=== PATIENT | female | born 2000 | race American Indian/Alaskan Native ===

== ENCOUNTER 2018-08-29 23:32 | Emergency (ER) | payer OTHER ==
[2018-08-29 23:51] VITALS: BP 118/64
--- NOTE | 2018-08-30 01:04 | XRay Report ---
PROCEDURE: XR CHEST ROUTINE 2V TECHNIQUE: PA and lateral chest radiographs were obtained. HISTORY: chestpain COMPARISONS: None. FINDINGS: Heart: Normal. Mediastinum/Vessels: Normal. Lungs/Pleural space: Normal. Bony thorax: No acute osseous abnormality. IMPRESSION: Normal examination. This document is electronically signed by Beckie Rosario DO., August 30 2018 01:02:03 AM ET
[2018-08-30] MEDS ORDERED: AUGMENTIN 875 MG PO ONE (03:06)
[2018-08-30] MEDS ORDERED: BENADRYL PO ONE (03:06)
[2018-08-30] MEDS ORDERED: IBUPROFEN PO ONE (03:06)
--- NOTE | 2018-08-30 03:06 | Emergency Department Report ---
ED General Adult HPI - General Chief complaint: Chest Pain Stated complaint: CP/THROAT PAIN/HEADACHE Time Seen by Provider: 08/30/18 03:04 Source: patient Mode of arrival: Ambulatory Limitations: No Limitations - History of Present Illness Initial comments: [id number] -[place]ip[place] female with a history of sinusitis who presents for URI symptoms today including postnasal drip sinus pain and pressure sore throat and ear pain and cough cough now produces chest pain with cough only right lateral chest wall patient denies shortness of breath is no wheezing there is no stridor symptoms are exacerbated by environmental exposure, vsymptoms are relieved by rest. Onset/Timin -: days(s) Severity scale (0 -10): 7 Quality: sharp Consistency: constant Improves with: rest Worsens with: movement, other (palpation) Associated Symptoms: chest pain, cough Treatments Prior to Arrival: none - Related Data Previous Rx's Medication Instructions Recorded Last Taken Type Amoxicillin/Potassium Clav 1 each PO BID 10 Days #20 tablet 08/30/18 Unknown Rx [Augmentin 875-125 Tablet] Fluticasone [Flonase] 1 spray NS QDAY #1 bottle 08/30/18 Unknown Rx Ibuprofen 800 mg PO TID PRN #30 tablet 08/30/18 Unknown Rx diphenhydrAMINE [Benadryl CAP] 25 mg PO Q6HR PRN #30 capsule 08/30/18 Unknown Rx predniSONE [Deltasone] 40 mg PO QDAY 5 Days #10 tab 08/30/18 Unknown Rx Allergies Allergy/AdvReac Type Severity Reaction Status Date / Time No Known Allergies Allergy Unverified 08/29/18 23:35 ED Review of Systems ROS: Stated complaint: CP/THROAT PAIN/HEADACHE Other details as noted in HPI Constitutional: no symptoms reported, chills, malaise Eyes: denies: eye pain, eye discharge, vision change ENT: congestion. denies: ear pain, throat pain Respiratory: cough Cardiovascular: denies: chest pain, palpitations Endocrine: no symptoms reported Gastrointestinal: denies: abdominal pain, nausea, diarrhea Genitourinary: denies: urgency, dysuria, discharge Musculoskeletal: denies: back pain, joint swelling, arthralgia Skin: denies: rash, lesions Neurological: denies: headache, weakness, paresthesias Psychiatric: denies: anxiety, depression Hematological/Lymphatic: denies: easy bleeding, easy bruising ED Past Medical Hx - Past Medical History Hx Asthma: Yes - Surgical History Past Surgical History?: No - Social History Smoking Status: Never Smoker Substance Use Type: Marijuana - Medications Home Medications: Home Medications Medication Instructions Recorded Confirmed Last Taken Type Amoxicillin/Potassium Clav 1 each PO BID 10 Days #20 tablet 08/30/18 Unknown Rx [Augmentin 875-125 Tablet] Fluticasone [Flonase] 1 spray NS QDAY #1 bottle 08/30/18 Unknown Rx Ibuprofen 800 mg PO TID PRN #30 tablet 08/30/18 Unknown Rx diphenhydrAMINE [Benadryl CAP] 25 mg PO Q6HR PRN #30 capsule 08/30/18 Unknown Rx predniSONE [Deltasone] 40 mg PO QDAY 5 Days #10 tab 08/30/18 Unknown Rx ED Physical Exam - General Limitations: No Limitations General appearance: alert, in no apparent distress - Head Head exam: Present: atraumatic, normocephalic - Eye Eye exam: Present: normal appearance, PERRL, EOMI Pupils: Present: normal accommodation - ENT ENT exam: Present: normal exam, mucous membranes moist, TM's normal bilaterally, other (bilat sinus pain to palpation no erythema no swelling turbinate eryethema boggy clear post nasal drip ) - Expanded ENT Exam Expanded Ear exam: Present: normal external inspection Mouth exam: Absent: trismus Throat exam: Positive: normal inspection, tonsillar erythema, tonsillomegaly. Negative: tonsillar exudate, R peritonsillar mass, L peritonsillar mass, other - Neck Neck exam: Present: normal inspection, full ROM, lymphadenopathy. Absent: tenderness, meningismus, thyromegaly - Expanded Neck Exam Expanded Neck exam: Absent: tenderness, midline deformity, anterior neck swelling, thyroid mass, carotid bruit, tracheal deviation - Respiratory Respiratory exam: Present: normal lung sounds bilaterally, chest wall tenderness (right lateral chest wall ). Absent: respiratory distress, wheezes, stridor - Cardiovascular Cardiovascular Exam: Present: regular rate, normal rhythm, normal heart sounds. Absent: systolic murmur, diastolic murmur, rubs, gallop - GI/Abdominal GI/Abdominal exam: Present: soft, normal bowel sounds. Absent: tenderness, guarding, rebound, rigid, bruit, hernia (5 mg) - Rectal Rectal exam: Present: deferred - Extremities Exam Extremities exam: Present: normal inspection, full ROM, normal capillary refill. Absent: tenderness, pedal edema, joint swelling, calf tenderness - Back Exam Back exam: Present: normal inspection, full ROM. Absent: tenderness, CVA tenderness (R), CVA tenderness (L), muscle spasm, paraspinal tenderness, rash noted - Neurological Exam Neurological exam: Present: alert, oriented X3, CN II-XII intact, normal gait, reflexes normal - Psychiatric Psychiatric exam: Present: normal affect, normal mood - Skin Skin exam: Present: warm (30 says he's , history of scan of the atenolol), dry, intact, normal color. Absent: rash ED Course Vital Signs 08/29/18 23:41 Temperature 98.1 F Pulse Rate 71 Respiratory 18 Rate Blood Pressure 118/64 O2 Sat by Pulse 100 Oximetry ED Medical Decision Making - EKG Data EKG shows normal: sinus rhythm Rate: normal - EKG Data When compared to previous EKG there are: previous EKG unavailable Interpretation: normal EKG (ekg interp by ed attending NSR no st elevation no ectopy ) - Radiology Data Radiology results: report reviewed, image reviewed cc: ED DOC, Fluoro Time In Minutes: PROCEDURE: XR CHEST ROUTINE 2V TECHNIQUE: PA and lateral chest radiographs were obtained. HISTORY: chestpain COMPARISONS: None. FINDINGS: Heart: Normal. Mediastinum/Vessels: Normal. Lungs/Pleural space: Normal. Bony thorax: No acute osseous abnormality. IMPRESSION: Normal examination. This document is electronically signed by Ryan Rosario DO., August 30 2018 01:02:03 AM ET Transcribed By: [facility] Dictated By: RYAN ROSARIO MD Electronically Authenticated By: RYAN ROSARIO MD Signed Date/Time: 08/30/184 DD/ TD/TT: 08/30/1856 - Medical Decision Making this is sinusitis, cxr: normal no opactities no infiltrates, EKG: NSR no st elevation no ectopy, plan tx for sinusitis with augment, ibuprofen, prednisone,flonase, follow up with pcp in 2-3 days return to ed if symptoms worsen. pt verbalized agreement and understanding of same. Critical care attestation.: If time is entered above; I have spent that time in minutes in the direct care of this critically ill patient, excluding procedure time. ED Disposition Clinical Impression: Sinusitis Qualifiers: Sinusitis location: maxillary Chronicity: acute Recurrence: non-recurrent Qualified Code(s): J01.00 - Acute maxillary sinusitis, unspecified Disposition: - TO HOME OR SELFCARE Is pt being admited?: No Does the pt Need Aspirin: No Condition: Stable Instructions: Sinusitis (ED) Prescriptions: Amoxicillin/Potassium Clav [Augmentin 875-125 Tablet] 1 each PO BID 10 Days #20 tablet diphenhydrAMINE [Benadryl CAP] 25 mg PO Q6HR PRN #30 capsule PRN Reason: sinus congestion predniSONE [Deltasone] 40 mg PO QDAY 5 Days #10 tab Fluticasone [Flonase] 1 spray NS QDAY #1 bottle Ibuprofen 800 mg PO TID PRN #30 tablet PRN Reason: fever pain Referrals: MIKI ESPINOSA MD [Primary Care Provider] - 3-5 Days
== END 2018-08-30 03:54 | disposition home or self-care (01) ==
LOC: ED 23:32
DX: J01.00 Acute maxillary sinusitis, unspecified (principal); J45.909 Unspecified asthma, uncomplicated
CPT/HCPCS: 71046; 93005; 93010; 99283

== ENCOUNTER 2018-09-20 11:43 | Emergency (ER) | payer OTHER ==
[2018-09-20 12:01] VITALS: BP 124/78
--- NOTE | 2018-09-20 13:54 | Emergency Department Report ---
ED General Adult HPI - General Chief complaint: Upper Respiratory Infection Stated complaint: CHEST PAIN/COUGHING/VOMITING Time Seen by Provider: 09/20/18 13:52 Source: patient Mode of arrival: Ambulatory Limitations: No Limitations - History of Present Illness Initial comments: Patient is a 18-year-old female past medical history of marijuana abuse who presents with cough and chest wall pain. Patient states that she has been smoking every day for most of her life. She also states around 2 weeks ago she's been having awful productive mucus. The mucus is thick and green phlegm and she states she only has chest wall pain when she coughs. Patient states that she was given antibiotics and steroids however she is finished her medications and her symptoms remain. She says it's a severe cough. She states that she has stopped smoking. Severity scale (0 -10): 0 - Related Data Previous Rx's Medication Instructions Recorded Last Taken Type Amoxicillin/Potassium Clav 1 each PO BID 10 Days #20 tablet 08/30/18 Unknown Rx [Augmentin 875-125 Tablet] Fluticasone [Flonase] 1 spray NS QDAY #1 bottle 08/30/18 Unknown Rx Ibuprofen 800 mg PO TID PRN #30 tablet 08/30/18 Unknown Rx diphenhydrAMINE [Benadryl CAP] 25 mg PO Q6HR PRN #30 capsule 08/30/18 Unknown Rx predniSONE [Deltasone] 40 mg PO QDAY 5 Days #10 tab 08/30/18 Unknown Rx Albuterol Sulfate [Albuterol 8.5 gm IH Q6H #1 hfa.aer.ad 09/20/18 Unknown Rx Sulfate Hfa] Benzonatate [Tessalon Perles] 100 mg PO Q8HR #30 capsule 09/20/18 Unknown Rx Allergies Allergy/AdvReac Type Severity Reaction Status Date / Time No Known Allergies Allergy Unverified 08/29/18 23:35 ED Review of Systems ROS: Stated complaint: CHEST PAIN/COUGHING/VOMITING Other details as noted in HPI Constitutional: denies: chills, fever Eyes: denies: eye pain, eye discharge, vision change ENT: denies: ear pain, throat pain Respiratory: cough. denies: shortness of breath, wheezing Cardiovascular: denies: chest pain, palpitations Endocrine: no symptoms reported Gastrointestinal: denies: abdominal pain, nausea, diarrhea Genitourinary: denies: urgency, dysuria, discharge Musculoskeletal: denies: back pain, joint swelling, arthralgia Skin: denies: rash, lesions Neurological: denies: headache, weakness, paresthesias Psychiatric: denies: anxiety, depression Hematological/Lymphatic: denies: easy bleeding, easy bruising ED Past Medical Hx - Past Medical History Hx Asthma: Yes Additional medical history: Sinus inf. - Surgical History Past Surgical History?: No - Social History Smoking Status: Current Every Day Smoker Substance Use Type: None - Medications Home Medications: Home Medications Medication Instructions Recorded Confirmed Last Taken Type Amoxicillin/Potassium Clav 1 each PO BID 10 Days #20 tablet 08/30/18 Unknown Rx [Augmentin 875-125 Tablet] Fluticasone [Flonase] 1 spray NS QDAY #1 bottle 08/30/18 Unknown Rx Ibuprofen 800 mg PO TID PRN #30 tablet 08/30/18 Unknown Rx diphenhydrAMINE [Benadryl CAP] 25 mg PO Q6HR PRN #30 capsule 08/30/18 Unknown Rx predniSONE [Deltasone] 40 mg PO QDAY 5 Days #10 tab 08/30/18 Unknown Rx Albuterol Sulfate [Albuterol 8.5 gm IH Q6H #1 hfa.aer.ad 09/20/18 Unknown Rx Sulfate Hfa] Benzonatate [Tessalon Perles] 100 mg PO Q8HR #30 capsule 09/20/18 Unknown Rx ED Physical Exam - General Limitations: No Limitations General appearance: alert, in no apparent distress - Head Head exam: Present: atraumatic, normocephalic - Eye Eye exam: Present: normal appearance - ENT ENT exam: Present: mucous membranes moist - Neck Neck exam: Present: normal inspection - Respiratory Respiratory exam: Present: normal lung sounds bilaterally. Absent: respiratory distress - Cardiovascular Cardiovascular Exam: Present: regular rate, normal rhythm. Absent: systolic murmur, diastolic murmur, rubs, gallop - GI/Abdominal GI/Abdominal exam: Present: soft, normal bowel sounds - Extremities Exam Extremities exam: Present: normal inspection - Back Exam Back exam: Present: normal inspection - Neurological Exam Neurological exam: Present: alert, oriented X3 - Psychiatric Psychiatric exam: Present: normal affect, normal mood - Skin Skin exam: Present: warm, dry, intact, normal color. Absent: rash ED Course Vital Signs 09/20/18 11:59 Temperature 98.8 F Pulse Rate 108 H Respiratory 18 Rate Blood Pressure 124/78 O2 Sat by Pulse 100 Oximetry ED Medical Decision Making - Radiology Data Radiology results: report reviewed, image reviewed Chief medical diagnosis: Bronchitis secondary to chronic weed use Differential diagnosis: Pneumonia, marijuana abuse Critical care attestation.: If time is entered above; I have spent that time in minutes in the direct care of this critically ill patient, excluding procedure time. ED Disposition Clinical Impression: Productive cough, Bronchitis, Marijuana smoker Disposition: DC- TO HOME OR SELFCARE Is pt being admited?: No Does the pt Need Aspirin: No Condition: Stable Instructions: Chronic Bronchitis (ED), Antitussive/Expectorant (By mouth) Prescriptions: Albuterol Sulfate [Albuterol Sulfate Hfa] 8.5 gm IH Q6H #1 hfa.aer.ad Benzonatate [Tessalon Perles] 100 mg PO Q8HR #30 capsule Referrals: MIKI ESPINOSA MD [Primary Care Provider] - 3-5 Days
[2018-09-20] MEDS ORDERED: LIDOCAINE VISCOUS 2% PO ONE (14:05)
[2018-09-20] MEDS ORDERED: PROVENTIL IH ONE (14:06)
--- NOTE | 2018-09-20 14:37 | XRay Report ---
PROCEDURE: XR CHEST ROUTINE 2V TECHNIQUE: 2 view chest HISTORY: cough and chest pain COMPARISONS: Chest x-ray August 30, 2018 FINDINGS: Trachea midline. Heart size normal. Mediastinal contour unremarkable. No pneumothorax. No sizable effusion. No acute airspace disease No acute bony abnormality IMPRESSION: No active pulmonary disease. This document is electronically signed by Thierry Muir MD., September 20 2018 02:34:55 PM ET
== END 2018-09-20 15:13 | disposition home or self-care (01) ==
LOC: ED 11:43
DX: J40 Bronchitis, not specified as acute or chronic (principal); F12.10 Cannabis abuse, uncomplicated; F17.200 Nicotine dependence, unspecified, uncomplicated
CPT/HCPCS: 71046; 94640

== ENCOUNTER 2018-11-19 09:59 | Emergency (ER) | payer OTHER ==
[2018-11-19 10:36] VITALS: BP 111/62
--- NOTE | 2018-11-19 11:21 | Emergency Department Report ---
ED General Adult HPI - General Chief complaint: Urogenital-Female Stated complaint: DEHYDRATED Time Seen by Provider: 11/19/18 11:16 Source: patient Mode of arrival: Ambulatory Limitations: No Limitations - History of Present Illness Initial comments: 18-year-old -[place] female comes in for urinary frequency and urinary urgency for 3 weeks. Patient which is been drinking lots of water pain a lot but feels like she is dehydrated. Patient denies any pain she reports she is having no vaginal discharge or vaginal bleeding she is sexually active with males and protective one partner in the last 6 months. Patient denies any drug use she denies any pain. No diabetes in parents or siblings. Past medical history of asthma. Onset/Timin -: week(s) Severity scale (0 -10): 0 - Related Data Previous Rx's Medication Instructions Recorded Last Taken Type Amoxicillin/Potassium Clav 1 each PO BID 10 Days #20 tablet 08/30/18 Unknown Rx [Augmentin 875-125 Tablet] Fluticasone [Flonase] 1 spray NS QDAY #1 bottle 08/30/18 Unknown Rx Ibuprofen [Ibuprofen 800] 800 mg PO TID PRN #30 tablet 08/30/18 Unknown Rx diphenhydrAMINE [Benadryl CAP] 25 mg PO Q6HR PRN #30 capsule 08/30/18 Unknown Rx predniSONE [Deltasone] 40 mg PO QDAY 5 Days #10 tab 08/30/18 Unknown Rx Albuterol Sulfate [Albuterol 8.5 gm IH Q6H #1 hfa.aer.ad 09/20/18 Unknown Rx Sulfate Hfa] Benzonatate [Tessalon Perles] 100 mg PO Q8HR #30 capsule 09/20/18 Unknown Rx Allergies Allergy/AdvReac Type Severity Reaction Status Date / Time No Known Allergies Allergy Verified 11/19/18 10:01 ED Review of Systems ROS: Stated complaint: DEHYDRATED Other details as noted in HPI Comment: All other systems reviewed and negative Gastrointestinal: denies: abdominal pain, nausea, diarrhea Genitourinary: urgency, frequency. denies: dysuria, hematuria, discharge Musculoskeletal: denies: back pain, joint swelling, arthralgia ED Past Medical Hx - Past Medical History Hx Asthma: Yes Additional medical history: Sinus inf. - Social History Smoking Status: Never Smoker - Medications Home Medications: Home Medications Medication Instructions Recorded Confirmed Last Taken Type Amoxicillin/Potassium Clav 1 each PO BID 10 Days #20 tablet 08/30/18 Unknown Rx [Augmentin 875-125 Tablet] Fluticasone [Flonase] 1 spray NS QDAY #1 bottle 08/30/18 Unknown Rx Ibuprofen [Ibuprofen 800] 800 mg PO TID PRN #30 tablet 08/30/18 Unknown Rx diphenhydrAMINE [Benadryl CAP] 25 mg PO Q6HR PRN #30 capsule 08/30/18 Unknown Rx predniSONE [Deltasone] 40 mg PO QDAY 5 Days #10 tab 08/30/18 Unknown Rx Albuterol Sulfate [Albuterol 8.5 gm IH Q6H #1 hfa.aer.ad 09/20/18 Unknown Rx Sulfate Hfa] Benzonatate [Tessalon Perles] 100 mg PO Q8HR #30 capsule 09/20/18 Unknown Rx ED Physical Exam - General Limitations: No Limitations General appearance: alert, in no apparent distress - Head Head exam: Present: atraumatic, normocephalic - Eye Eye exam: Present: normal appearance - ENT ENT exam: Present: mucous membranes moist - Neck Neck exam: Present: normal inspection - Respiratory Respiratory exam: Present: normal lung sounds bilaterally. Absent: respiratory distress - Cardiovascular Cardiovascular Exam: Present: regular rate, normal rhythm. Absent: systolic murmur, diastolic murmur, rubs, gallop - GI/Abdominal GI/Abdominal exam: Present: soft, normal bowel sounds - Extremities Exam Extremities exam: Present: normal inspection - Back Exam Back exam: Present: normal inspection - Neurological Exam Neurological exam: Present: alert, oriented X3 - Psychiatric Psychiatric exam: Present: normal affect, normal mood - Skin Skin exam: Present: warm, dry, intact, normal color. Absent: rash ED Course Vital Signs 11/19/18 10:35 Temperature 98.2 F Pulse Rate 80 Respiratory 16 Rate Blood Pressure 111/62 O2 Sat by Pulse 100 Oximetry ED Medical Decision Making - Lab Data Result diagrams: 11/19/18 12:01 Laboratory Tests 11/19/18 11/19/18 11:06 12:01 Sodium 137 Potassium 4.8 Chloride 102.0 Carbon Dioxide 26 Anion Gap 14 BUN 13 Creatinine 0.2 L Estimated GFR > 60 BUN/Creatinine Ratio 65 Glucose 81 Calcium 9.0 Total Bilirubin < 0.20 AST 14 ALT 12 Alkaline Phosphatase 54 Total Protein 6.6 Albumin 4.0 Albumin/Globulin Ratio 1.5 Urine Color Yellow Urine Turbidity Clear Urine pH 6.0 Ur Specific [place] 1.015 Urine Protein <15 mg/dl Urine Glucose (UA) Neg Urine Ketones Neg Urine Blood Lg Urine Nitrite Neg Ur Reducing Substances Not Reportable Urine Bilirubin Neg Urine Ictotest Not Reportable Urine Urobilinogen < 2.0 Ur Leukocyte Esterase Neg Urine WBC (Auto) < 1.0 Urine RBC (Auto) 1.0 U Epithel Cells (Auto) 3.0 Urine Mucus Few Urine HCG, Qual Negative - Medical Decision Making 18-year-old female comes in for increase fluid intake and increase urinary frequency. Patient denies any vaginal discharge or vaginal bleeding dysuria. Urinalysis CBC CMP was be sent out. Urinalysis is unremarkable CBC CMP are all stable. Discussed the patient at most likely if she increases her fluid intake she's been having increased on urine output. Discussed the patient to follow up with her primary care provider if she has any continued concern. - Differential Diagnosis UTI, diabetes Critical care attestation.: If time is entered above; I have spent that time in minutes in the direct care of this critically ill patient, excluding procedure time. ED Disposition Clinical Impression: Urinary frequency Disposition: DC-01 TO HOME OR SELFCARE Is pt being admited?: No Does the pt Need Aspirin: No Condition: Stable Additional Instructions: Please be aware that if he increase her water intake and also increase her urine output. I recommend he follow up with her primary care provider he continued to have these symptoms and they continued to be concerned. Referrals: Your,provider [Other] - 3-5 Days
[2018-11-19 11:40] LABS: HCG Qualitative,Urine Negative (Negative)
[2018-11-19 11:41] LABS: Bilirubin,Urine NEG (Negative); Blood,Urine LG (Negative); Color,Urine Yellow (Yellow); Mucus,Urine FEW /HPF; Protein,Urine <15 mg/dL mg/dL (Negative); Urobilinogen,Urine < 2.0 mg/dL (<2.0); WBC,Urine < 1.0 /HPF (0.0-6.0)
[2018-11-19 12:37] LABS: Alanine Aminotransferase 12 units/L (7-56); BUN/Creatinine Ratio 65; Blood Urea Nitrogen 13 mg/dL (7-17); Hemolysis Index 34
[2018-11-19 12:58] LABS: Basophils % (Auto) 0.5 % (0.0-1.8); Eosinophils # (Auto) 0.1 K/mm3 (0.0-0.4); Eosinophils % (Auto) 1.3 % (0.0-4.3); Hematocrit 36.3 % (30.3-42.9); Hemoglobin 12.2 gm/dl (10.1-14.3); Lymphocytes # (Auto) 1.5 K/mm3 (1.2-5.4); Lymphocytes % (Auto) 31.1 % (13.4-35.0); Mean Corpuscular HGB Conc 34 % (30-34); Mean Corpuscular Volume 89 fl (79-97); Monocytes # (Auto) 0.3 K/mm3 (0.0-0.8); Monocytes % (Auto) 5.7 % (0.0-7.3); Platelet Count 242 K/mm3 (140-440); Red Blood Count 4.08 M/mm3 (3.65-5.03); Red Cell Distribution Width 13.8 % (13.2-15.2)
== END 2018-11-19 13:01 | disposition home or self-care (01) ==
LOC: ED 09:59
DX: R35.0 Frequency of micturition (principal); R39.15 Urgency of urination; J45.909 Unspecified asthma, uncomplicated; Z79.899 Other long term (current) drug therapy
CPT/HCPCS: 36415; 80053; 81001; 81025; 85025; 99283

== ENCOUNTER 2021-06-15 11:07 | Emergency (ER) | payer SELFPAY ==
[2021-06-15 11:17] VITALS: BP 141/91
[2021-06-15] MEDS ORDERED: ONDANSETRON 4 MG/2 ML INJ IV ONE (11:22)
[2021-06-15] MEDS ORDERED: SODIUM CHLORIDE 0.9% 1000 ML 1,000 ML IV ONE (11:22)
[2021-06-15] MEDS ORDERED: MORPHINE 4 MG/1 ML INJ IV ONE (11:22)
--- NOTE | 2021-06-15 11:22 | Emergency Department Report ---
History of Present Illness - General Chief Complaint: Overdose Stated Complaint: OVERDOSE ON IRON Time Seen by Provider: 06/15/21 11:16 Source: patient Mode of arrival: Ambulatory Limitations: No Limitations - History of Present Illness Initial Comments: CC: "It was an accident. My stomach hurts." HPI: This is a 21 yo female with a history of asthma who presents with abdominal pain after an accidental overdose of iron. She has severe pain. She will not answer any further questions. When asked if she was attempting to harm herself, Ms. Bates will not give an answer. She was brought to the hospital by her boyfriend. Complaint: accidental overdose -: unknown Intent: unwilling to say How Overdose Was Discovered: family/friend present Context: Accidental Overdose: other (Patient will not cooperate with history taking) - Related Data Previous Rx's Medication Instructions Recorded Last Taken Type Amoxicillin/Potassium Clav 1 each PO BID 10 Days #20 tablet 08/30/18 Unknown Rx [Augmentin 875-125 Tablet] Fluticasone [Flonase] 1 spray NS QDAY #1 bottle 08/30/18 Unknown Rx Ibuprofen [Ibuprofen 800] 800 mg PO TID PRN #30 tablet 08/30/18 Unknown Rx diphenhydrAMINE [Benadryl CAP] 25 mg PO Q6HR PRN #30 capsule 08/30/18 Unknown Rx predniSONE [Deltasone] 40 mg PO QDAY 5 Days #10 tab 08/30/18 Unknown Rx Albuterol Sulfate [Albuterol 8.5 gm IH Q6H #1 hfa.aer.ad 09/20/18 Unknown Rx Sulfate Hfa] Benzonatate [Tessalon Perles] 100 mg PO Q8HR #30 capsule 09/20/18 Unknown Rx Acetaminophen [Acetaminophen TAB] 650 mg PO Q6HR PRN #30 tablet 03/07/19 Unknown Rx Allergies Allergy/AdvReac Type Severity Reaction Status Date / Time No Known Allergies Allergy Verified 11/19/18 10:01 ED Review of Systems ROS: Stated complaint: OVERDOSE ON IRON Other details as noted in HPI Comment: Unobtainable due to pts medical conditions (Patient would not cooperate) ED Past Medical Hx - Past Medical History Previous Medical History?: Yes Hx Asthma: Yes Additional medical history: Sinus inf. - Social History Smoking Status: Never Smoker Substance Use Type: None - Medications Home Medications: Home Medications Medication Instructions Recorded Confirmed Last Taken Type Amoxicillin/Potassium Clav 1 each PO BID 10 Days #20 tablet 08/30/18 Unknown Rx [Augmentin 875-125 Tablet] Fluticasone [Flonase] 1 spray NS QDAY #1 bottle 08/30/18 Unknown Rx Ibuprofen [Ibuprofen 800] 800 mg PO TID PRN #30 tablet 08/30/18 Unknown Rx diphenhydrAMINE [Benadryl CAP] 25 mg PO Q6HR PRN #30 capsule 08/30/18 Unknown Rx predniSONE [Deltasone] 40 mg PO QDAY 5 Days #10 tab 08/30/18 Unknown Rx Albuterol Sulfate [Albuterol 8.5 gm IH Q6H #1 hfa.aer.ad 09/20/18 Unknown Rx Sulfate Hfa] Benzonatate [Tessalon Perles] 100 mg PO Q8HR #30 capsule 09/20/18 Unknown Rx Acetaminophen [Acetaminophen TAB] 650 mg PO Q6HR PRN #30 tablet 03/07/19 Unknown Rx ED Physical Exam - General Limitations: No Limitations General appearance: alert, in no apparent distress, other (Rocking back and forth in wheelchair holding stomach appears in pain) - Head Head exam: Present: atraumatic, normocephalic - Eye Eye exam: Present: normal appearance - ENT ENT exam: Present: mucous membranes moist - Neck Neck exam: Present: normal inspection, full ROM - Respiratory Respiratory exam: Present: normal lung sounds bilaterally. Absent: respiratory distress, wheezes, rales, rhonchi - Cardiovascular Cardiovascular Exam: Present: regular rate, normal rhythm, normal heart sounds. Absent: systolic murmur, diastolic murmur, rubs, gallop - GI/Abdominal GI/Abdominal exam: Present: soft, normal bowel sounds. Absent: distended, tenderness, guarding, rebound - Extremities Exam Extremities exam: Present: normal inspection - Neurological Exam Neurological exam: Present: alert, oriented X3 - Psychiatric Psychiatric exam: Present: normal affect, normal mood - Skin Skin exam: Present: warm, dry, intact, normal color. Absent: rash ED Course Vital Signs 06/15/21 11:16 Temperature 98.3 F Pulse Rate 83 Respiratory 17 Rate Blood Pressure 141/91 O2 Sat by Pulse 99 Oximetry ED Medical Decision Making - Lab Data Result diagrams: 06/15/21 11:33 06/15/21 11:33 Laboratory Results - last 24 hr 06/15/21 06/15/21 06/15/21 11:33 11:33 11:33 WBC 5.9 RBC 4.67 Hgb 12.8 Hct 39.8 MCV 85 MCH 27 L MCHC 32 RDW 15.1 Plt Count 241 Lymph % (Auto) 25.8 Warrick % (Auto) 6.0 Eos % (Auto) 0.7 Baso % (Auto) 0.5 Lymph # (Auto) 1.5 Warrick # (Auto) 0.4 Eos # (Auto) 0.0 Baso # (Auto) 0.0 Seg Neutrophils % 67.0 Seg Neutrophils # 3.9 Sodium 138 Potassium 3.3 L Chloride 105.5 Carbon Dioxide 19 L Anion Gap 17 BUN 10 Glucose 132 H Calcium 9.5 Total Bilirubin 0.70 AST 15 ALT 12 Alkaline Phosphatase 54 Total Protein 7.3 Albumin 4.3 Albumin/Globulin Ratio 1.4 HCG, Qual Acetaminophen 5.0 L 06/15/21 11:33 WBC RBC Hgb Hct MCV MCH MCHC RDW Plt Count Lymph % (Auto) Warrick % (Auto) Eos % (Auto) Baso % (Auto) Lymph # (Auto) Warrick # (Auto) Eos # (Auto) Baso # (Auto) Seg Neutrophils % Seg Neutrophils # Sodium Potassium Chloride Carbon Dioxide Anion Gap BUN Glucose Calcium Total Bilirubin AST ALT Alkaline Phosphatase Total Protein Albumin Albumin/Globulin Ratio HCG, Qual Negative Acetaminophen - EKG Data -: EKG Interpreted by Me EKG shows normal: sinus rhythm, axis, intervals, QRS complexes, ST-T waves Rate: normal - EKG Data Interpretation: normal EKG 06/15/21 11:28 EKG obtained 1121 EKG interpreted by me Normal sinus rhythm normal rate normal axis normal intervals no ST elevation no ST-T signs of ischemia normal EKG rate 80 bpm - Medical Decision Making Accidental overdose: However patient would not speak of intention. She would not answer questions regarding suicidality. I was unable to contract for her safety. I immediately placed patient on 1013 involuntary hold on arrival. Unfortunately patient eloped without supervision. Monitored bed not available. Emergency department at capacity. I was informed at 1225. Critical care attestation.: If time is entered above; I have spent that time in minutes in the direct care of this critically ill patient, excluding procedure time. ED Disposition Clinical Impression: Drug overdose of undetermined intent Disposition: LEFT AWOL/ELOPED Is pt being admited?: No Does the pt Need Aspirin: No
[2021-06-15 12:01] LABS: Basophils % (Auto) 0.5 % (0.0-1.8); Eosinophils % (Auto) 0.7 % (0.0-4.3); Hematocrit 39.8 % (30.3-42.9); Hemoglobin 12.8 gm/dl (10.1-14.3); Lymphocytes # (Auto) 1.5 K/mm3 (1.2-5.4); Lymphocytes % (Auto) 25.8 % (13.4-35.0); Mean Corpuscular HGB Conc 32 % (30-34); Mean Corpuscular Volume 85 fl (79-97); Monocytes # (Auto) 0.4 K/mm3 (0.0-0.8); Platelet Count 241 K/mm3 (140-440); Red Blood Count 4.67 M/mm3 (3.65-5.03); Red Cell Distribution Width 15.1 % (13.2-15.2)
[2021-06-15 12:31] LABS: Alanine Aminotransferase 12 units/L (7-56); Albumin 4.3 g/dL (3.9-5); Blood Urea Nitrogen 10 mg/dL (7-17); Calcium 9.5 mg/dL (8.4-10.2); Hemolysis Index 11
[2021-06-15 12:52] LABS: BUN/Creatinine Ratio 17
--- NOTE | 2021-06-16 18:14 | Electrocardiograph Report ---
[facility] Test Date: 2021-06-15 Test Time: 11:21:08 Pat Name: INDERJIT REECE Department: Room: Gender: F [employer]: DANNY : 2000 Requested By: RONDA VELIZ Order Number: [id number] Reading MD: Wil Jennings Measurements Intervals Norris Rate: 82 P: 33 CO: 156 QRS: 72 QRSD: 91 T: 35 QT: 377 QTc: 442 Interpretive Statements Sinus rhythm No previous ECG available for comparison Electronically Signed On 06-16-2021 18:13:57 EST by Wil Jennings
== END 2021-06-15 12:00 | disposition left against medical advice (07) ==
LOC: ED 11:07
DX: T45.4X4A Poisoning by iron and its compounds, undetermined, initial encounter (principal); Y92.89 Other specified places as the place of occurrence of the external cause; J45.909 Unspecified asthma, uncomplicated
CPT/HCPCS: 36415; 80053; 84703; 85025; 93005; 96361; 96374; 96375; 99283; J2270; J2405; J7030; 80320; Q0162; G0480